=== PATIENT | male | born 1985 | race Caucasian/White ===

== ENCOUNTER 2017-10-19 05:57 | Inpatient (IN) | payer OTHER ==
[2017-10-19] MEDS: CelecoXIB (CeleBREX) 100 MG CAP PO (06:43)
[2017-10-19] MEDS: PERCOCET 5MG/325MG TAB PO ×3 (06:44→22:46)
[2017-10-19] MEDS: LR 1,000 ML IV ×4 (06:44→20:46)
[2017-10-19] MEDS ORDERED: dexameTHASONE 4 MG/ML 1ML VIAL (J1100) As Ordered (07:47)
[2017-10-19] MEDS ORDERED: ROCURONIUM BROMIDE 50 MG/5 ML VIAL As Ordered ×2 (07:47→08:13)
[2017-10-19] MEDS ORDERED: MIDAZOLAM INJ 2 MG/2 ML VIAL (J2250) As Ordered (07:47)
[2017-10-19] MEDS ORDERED: LIDOCAINE 2% INJ 100 MG/5 ML SDV (FOR ANES.) As Ordered (07:47)
[2017-10-19] MEDS ORDERED: PROPOFOL 200 MG/20 ML VIAL As Ordered (07:47)
[2017-10-19] MEDS ORDERED: HYDROmorphone HCL 2 MG/ML 1ML VIAL (J1170) As Ordered (07:47)
[2017-10-19] MEDS ORDERED: fentaNYL 250 MCG/5 ML INJECTION (J3010) As Ordered (07:47)
[2017-10-19] MEDS ORDERED: METOCLOPRAMIDE INJ 10MG/2ML VIAL (J2765) As Ordered (07:47)
[2017-10-19] MEDS ORDERED: NEOSTIGMINE 10 MG/10 ML VIAL (J2710) As Ordered (07:49)
[2017-10-19] MEDS ORDERED: ONDANSETRON 4MG/2ML VIAL (J2405) As Ordered (07:49)
[2017-10-19] MEDS ORDERED: GLYCOPYRROLATE INJ 0.2 MG/ML 2 ML VIAL As Ordered ×2 (07:49)
[2017-10-19] MEDS: METAMUCIL (PSYLLIUM) PACKET PO (09:00)
[2017-10-19] MEDS: MOM 30ML SUSPENSION UDC PO (09:00)
[2017-10-19] MEDS: THROMBIN SOLN 20,000 UNITS KIT As Ordered (09:14)
[2017-10-19] MEDS: BACITRACIN PWD 50,000 UNITS VIAL As Ordered (09:14)
[2017-10-19] MEDS: LIDOCAINE W/EPINEPHRINE 1% 20ML VIAL As Ordered (10:29)
[2017-10-19] MEDS: methylPREDNISolone 500 MG VIAL (J2930) As Ordered (10:29)
[2017-10-19] MEDS ORDERED: DESFLURANE 240 ML INHALANT As Ordered (10:31)
[2017-10-19] MEDS ORDERED: METOCLOPRAMIDE INJ 10MG/2ML VIAL (J2765) IV (11:45)
[2017-10-19] MEDS ORDERED: HYDROmorphone HCL 1 MG/ML SYRINGE (J1170) IV (11:45)
[2017-10-19] MEDS: fentaNYL 100 MCG/2 ML INJECTION (J3010) IV ×4 (11:45→12:00)
[2017-10-19] MEDS ORDERED: PERCOCET 5MG/325MG TAB PO ×2 (11:45)
[2017-10-19] MEDS ORDERED: MEPERIDINE INJ 25 MG/ML VIAL (J2175) IV (11:45)
[2017-10-19] MEDS: ONDANSETRON 4MG/2ML VIAL (J2405) IV (12:04)
[2017-10-19] MEDS ORDERED: HYDROMORPHONE HCL 0.5 MG/ 0.5 ML SYRINGE (J1170 PER 1) IV (12:51)
[2017-10-19] MEDS: PROMETHAZINE INJ 25 MG/ML VIAL (J2550) IV (13:24)
[2017-10-19] MEDS: HYDROMORPHONE HCL 0.5 MG/ 0.5 ML SYRINGE (J1170 PER 1) IV (15:36)
[2017-10-20] MEDS: PERCOCET 5MG/325MG TAB PO (06:26)
[2017-10-20] MEDS: LR 1,000 ML IV (07:44)
[2017-10-20] MEDS: MOM 30ML SUSPENSION UDC PO (08:36)
[2017-10-20] MEDS: METAMUCIL (PSYLLIUM) PACKET PO (08:36)
== END 2017-10-20 08:45 | disposition home or self-care (01) | DRG 473 ==
LOC: M OR 05:57 → M MS5PR 12:30
PROC: 0RG2070 Fusion of 2 or more Cervical Vertebral Joints with Autologous Tissue Substitute, Anterior Approach, Anterior Column, Open Approach (ICD-10-PCS; principal; 2017-10-19 07:30)
PROC: 0RB30ZZ Excision of Cervical Vertebral Disc, Open Approach (ICD-10-PCS; 2017-10-19 07:30)
PROC: 00NW0ZZ Release Cervical Spinal Cord, Open Approach (ICD-10-PCS; 2017-10-19 07:30)
DX: M50.223 Other cervical disc displacement at C6-C7 level (principal); M50.123 Cervical disc disorder at C6-C7 level with radiculopathy; M48.02 Spinal stenosis, cervical region; F17.290 Nicotine dependence, other tobacco product, uncomplicated; Z79.1 Long term (current) use of non-steroidal anti-inflammatories (NSAID)